=== PATIENT | female | born 2000 | race Two or more races ===

== ENCOUNTER → 2022-06-20 | Emergency (ER) | payer MEDICAID, OTHER | END | disposition left against medical advice (07) | LOC: ER 19:49 | DX: O26.893 Other specified pregnancy related conditions, third trimester (principal); R50.9 Fever, unspecified; Z3A.34 34 weeks gestation of pregnancy; Z53.21 Procedure and treatment not carried out due to patient leaving prior to being seen by health care provider ==

== ENCOUNTER → 2024-03-25 | Outpatient (CLI) | payer MEDICAID ==
[2024-03-26 07:06] LABS: RPR Non Reactive (Non Reactive)
== END | disposition home or self-care (01) ==
LOC: LAB 12:07
PROVIDERS: ATTEND Obstetrics & Gynecology
DX: Z34.80 Encounter for supervision of other normal pregnancy, unspecified trimester (principal)
CPT/HCPCS: 86592

== ENCOUNTER → 2024-03-31 | Outpatient (CLI) | payer MEDICAID ==
[2024-03-31 15:00] LABS: Basophils # (auto) 0 10 ^3/uL (0-0.2); Basophils % (auto) 0.7 % (0.0-2.0); Eosinophils # (auto) 0.1 10 ^3/uL (0-0.8); Eosinophils % (auto) 0.8 % (0.0-7.0); Hematocrit 30.5 % (36.0-46.0); Hemoglobin 10.2 g/dL (12.2-16.2); Lymphocytes # (auto) 1.3 10 ^3/uL (0.4-5.4); Lymphocytes % (auto) 19.1 % (10.0-50.0); Mean Corpuscular Hemoglobin 27.7 pg (28.0-32.0); Mean Corpuscular Hgb Conc. 33.6 g/dL (32.0-36.0); Mean Corpuscular Volume 82.4 fL (80.0-100.0); Monocytes # (auto) 0.5 10 ^3/uL (0-1.3); Monocytes % (auto) 7.6 % (0.0-12.0); Neutrophils # (auto) 4.8 10 ^3/uL (1.6-8.6); Neutrophils % (auto) 71.8 % (37.0-80.0); Platelet Count (auto) 194 10^3/uL (140-450); Red Cell Distribution Width 14.7 % (11.8-14.3); White Blood Cell 6.7 10^3/uL (4.4-10.8)
[2024-04-01 07:06] LABS: RPR Non Reactive (Non Reactive)
[2024-04-01 22:06] LABS: Chlamydia Trachomatis, NAA Negative (Negative); Neisseria gonorrhoeae, NAA Negative (Negative)
[2024-04-02 12:07] LABS: QuantiFERON-TB Gold Plus Negative (Negative)
== END | disposition home or self-care (01) ==
LOC: LAB 14:15
PROVIDERS: ATTEND Obstetrics & Gynecology
DX: Z11.3 Encounter for screening for infections with a predominantly sexual mode of transmission (principal); Z72.51 High risk heterosexual behavior
CPT/HCPCS: 36415; 85025; 86592

== ENCOUNTER 2024-04-09 11:09 | Observation (INO) | payer MEDICAID ==
[2024-04-09] MEDS ORDERED: PREN-96 PO (11:23)
[2024-04-09 13:31] LABS: Amphetamine Screen, Urine Neg (NEGATIVE); Barbiturate Scree,Urine Neg (NEGATIVE); Benzodiazephine Screen, Urine Neg (NEGATIVE); Cannabinoid Screen, Urine Neg (NEGATIVE); Cocaine Screen, Urine Neg (NEGATIVE); Opiate Scree,Urine Neg (NEGATIVE); Phencyclidine Screen, Urine Neg (NEGATIVE)
== END 2024-04-09 14:08 | disposition home or self-care (01) ==
LOC: UNDOADMOB 11:09 → LDRP 11:09
PROVIDERS: ADMIT Obstetrics & Gynecology; ATTEND Obstetrics & Gynecology
DX: O69.81X0 Labor and delivery complicated by cord around neck, without compression, not applicable or unspecified (principal); O26.893 Other specified pregnancy related conditions, third trimester; H53.8 Other visual disturbances; F41.0 Panic disorder [episodic paroxysmal anxiety]; Z3A.36 36 weeks gestation of pregnancy; Z79.899 Other long term (current) drug therapy
CPT/HCPCS: 59025; 76818; 80307; 81002; 82948; 82962; 94760; 96360; 96361; G0378

== ENCOUNTER 2024-04-13 11:19 | Observation (INO) | payer MEDICAID ==
[~2024-04-13 11:19] MED LIST: PREN-96 PO
== END 2024-04-13 15:26 | disposition home or self-care (01) ==
LOC: LDRP 13:56
PROVIDERS: ADMIT Obstetrics & Gynecology; ATTEND Obstetrics & Gynecology
DX: O69.81X0 Labor and delivery complicated by cord around neck, without compression, not applicable or unspecified (principal); O34.63 Maternal care for abnormality of vagina, third trimester; N89.8 Other specified noninflammatory disorders of vagina; Z3A.37 37 weeks gestation of pregnancy
CPT/HCPCS: 59025; 76818; 81002; G0378

== ENCOUNTER 2024-04-16 08:55 | Observation (INO) | payer MEDICAID | END 2024-04-16 10:50 | disposition home or self-care (01) | LOC: UNDOADMOB 08:55 → LDRP 08:55 | PROVIDERS: ADMIT Obstetrics & Gynecology; ATTEND Obstetrics & Gynecology | DX: O99.891 Other specified diseases and conditions complicating pregnancy (principal); M54.9 Dorsalgia, unspecified; O69.81X0 Labor and delivery complicated by cord around neck, without compression, not applicable or unspecified; Z3A.37 37 weeks gestation of pregnancy | CPT/HCPCS: 59025; 76818; 81002; G0378 ==

== ENCOUNTER 2024-04-17 21:00 | Observation (INO) | payer MEDICAID ==
[~2024-04-17] VITALS: Ht 149.9 cm; Wt 81.2 kg
== END 2024-04-17 23:30 | disposition home or self-care (01) ==
LOC: LDRP 21:00
PROVIDERS: ADMIT Obstetrics & Gynecology; ATTEND Obstetrics & Gynecology
DX: O36.8130 Decreased fetal movements, third trimester, not applicable or unspecified (principal); O62.9 Abnormality of forces of labor, unspecified; Z3A.38 38 weeks gestation of pregnancy
CPT/HCPCS: 59025; 76818; 81002; 94760; G0378

== ENCOUNTER 2024-04-18 18:57 | Observation (INO) | payer MEDICAID | END 2024-04-18 21:27 | disposition home or self-care (01) | LOC: LDRP 18:57 | PROVIDERS: ADMIT Obstetrics & Gynecology; ATTEND Obstetrics & Gynecology | DX: O62.9 Abnormality of forces of labor, unspecified (principal); O69.81X0 Labor and delivery complicated by cord around neck, without compression, not applicable or unspecified; Z3A.38 38 weeks gestation of pregnancy | CPT/HCPCS: 59025; 76818; 81002; G0378 ==

== ENCOUNTER 2024-04-20 04:49 | Inpatient (IN) | payer MEDICAID ==
[~2024-04-20] VITALS: Ht 147.3 cm; Wt 81.6 kg
[2024-04-21] MEDS ORDERED: LIDOCAINE 2%HCL (LOCAL ANESTH.) INJ 20ML MDV IJ PRN (17:15)
[2024-04-21] MEDS ORDERED: LACTATED RINGER'S 1,000 ML IV SCH (17:15)
[2024-04-21] MEDS ORDERED: NITROGLYCERIN 0.4 MG SL TAB SL PRN (17:15)
[2024-04-21] MEDS ORDERED: MORPHINE SULFATE INJ 2 MG/ml SYRG IV PRN (17:15)
[2024-04-21] MEDS ORDERED: ePHEDrine SULFATE 50 MG/ML AMP IV ONE (18:45)
[2024-04-21] MEDS ORDERED: LIDOCAINE HCL 2 %PF INJ 10ML AMP IJ ONE (18:45)
[2024-04-21] MEDS ORDERED: NALOXONE HCL 0.4 MG/ML VIAL IV ONE (18:45)
[2024-04-21] MEDS ORDERED: miSOPROStol 100 mcg TAB SL PRN (19:00)
[2024-04-21] MEDS ORDERED: ONDANSETRON HCL 4 MG/2 ML VIAL IV PRN (19:00)
[2024-04-21] MEDS ORDERED: TERBUTALINE SULFATE 1 MG/ML 1ML VIAL SC PRN (19:00)
[2024-04-21] MEDS ORDERED: CARBOPROST TROMETHAMINE 250 MCG/1ML VIAL IM PRN (19:00)
[2024-04-21] MEDS ORDERED: miSOPROStol 100 mcg TAB PR PRN (19:00)
[2024-04-21] MEDS ORDERED: METHYLERGONOVINE MALEATE 0.2 MG/ML AMP IM PRN (19:00)
[2024-04-21] MEDS: PHISODERM TOP SOLN 240ML BTL TOP PRN (19:12)
[2024-04-21] MEDS: DERMOPLAST 60ML BOTTLE TOP PRN (19:12)
[2024-04-21] MEDS: WITCH HAZEL-GLYCERIN PAD TOP PRN (19:12)
[2024-04-21 19:13] LABS: Basophils # (auto) 0 10 ^3/uL (0-0.2); Basophils % (auto) 0.2 % (0.0-2.0); Eosinophils # (auto) 0 10 ^3/uL (0-0.8); Eosinophils % (auto) 0.4 % (0.0-7.0); Hematocrit 30.8 % (36.0-46.0); Hemoglobin 10.6 g/dL (12.2-16.2); Lymphocytes # (auto) 1.3 10 ^3/uL (0.4-5.4); Lymphocytes % (auto) 12.2 % (10.0-50.0); Mean Corpuscular Hemoglobin 27.8 pg (28.0-32.0); Mean Corpuscular Hgb Conc. 34.3 g/dL (32.0-36.0); Mean Corpuscular Volume 80.8 fL (80.0-100.0); Monocytes # (auto) 0.7 10 ^3/uL (0-1.3); Monocytes % (auto) 6.3 % (0.0-12.0); Neutrophils # (auto) 8.7 10 ^3/uL (1.6-8.6); Neutrophils % (auto) 80.9 % (37.0-80.0); Platelet Count (auto) 197 10^3/uL (140-450); Red Blood Cells 3.81 10^6/uL (4.0-5.20); Red Cell Distribution Width 15.2 % (11.8-14.3); White Blood Cell 10.7 10^3/uL (4.4-10.8)
[2024-04-21] MEDS: LACTATED RINGER'S 1,000 ML IV ONE (19:13)
[2024-04-21 19:28] LABS: Albumin 4.2 g/dL (3.2-4.8); Alkaline Phosphatase 169 U/L (46-116); Anion Gap 9 (5-15); Aspartate Aminotransferase 11 U/L (13-40); BUN/Creatinine Ratio 13.5 (10.0-20.0); Blood Urea Nitrogen 7 mg/dL (9-23); Calcium 9.3 mg/dL (8.7-10.4); Carbon Dioxide 19 mmol/L (20-30); Chloride 106 mmol/L (98-107); Glucose 75 mg/dL (74-106); Potassium 3.5 mmol/L (3.5-5.1); Sodium 134 mmol/L (136-145)
[2024-04-21 19:29] LABS: Bilirubin, Total 0.3 mg/dL (0.2-1.0); Total Protein 7.5 g/dL (5.7-8.2)
[2024-04-21 19:34] LABS: Alanine Aminotransferase < 9 U/L (7-40)
[2024-04-21 19:40] LABS: INR 0.94 (0.9-1.15); Partial Thromboplastin Time 25.5 SEC (24.5-34.5)
[2024-04-21 20:00] LABS: Urine Bacteria None Seen /hpf (None Seen)
[2024-04-21 20:20] LABS: Urine Blood Negative /uL (Negative); Urine Clarity Clear (Clear); Urine Color Yellow (Yellow); Urine Mucus FEW (None Seen); Urine Protein, UAD TRACE (Negative); Urine Specific Gravity 1.024 (1.001-1.035); Urine Urobilinogen Normal (Negative); Urine WBC 1 /hpf (0 - 5); Urine pH 7.5 (5.0-9.0)
[2024-04-21 20:27] LABS: Amphetamine Screen, Urine Neg (NEGATIVE); Barbiturate Scree,Urine Neg (NEGATIVE); Benzodiazephine Screen, Urine Neg (NEGATIVE); Cocaine Screen, Urine Neg (NEGATIVE)
[2024-04-21 20:28] LABS: Cannabinoid Screen, Urine Neg (NEGATIVE); Opiate Scree,Urine Neg (NEGATIVE); Phencyclidine Screen, Urine Neg (NEGATIVE)
[2024-04-21] MEDS: LACT. RINGERS/OXYTOCIN 20UNITS 500 ML IV ONE ×2 (20:48→21:05)
[2024-04-21] MEDS: ROPIVACAINE HCL 200 ML ONE (20:51)
[2024-04-21] MEDS: fentaNYL CITRATE 100 MCG/2 ML VL IV ONE (20:52)
[2024-04-21] MEDS ORDERED: DIPHENOXYLATE W/ATROPINE 2.5 MG TAB PO SCH (22:00)
[2024-04-21 22:45] VITALS: BP 119/80; PULSE 75; RESP 16; TEMP 98.4; O2SAT 97
[2024-04-22] MEDS: IBUPROFEN 600 MG TAB PO PRN (02:11)
[2024-04-22 03:00] VITALS: BP 122/77; PULSE 78; RESP 16; TEMP 98.5; O2SAT 97
[2024-04-22] MEDS: DOCUSATE SOD 100 MG CAP PO SCH (04:18)
[2024-04-22] MEDS: ACETAMINOPHEN 325 MG TAB PO PRN (04:18)
[2024-04-22 07:00] VITALS: BP 112/70; PULSE 91; RESP 16; TEMP 98.3; O2SAT 98
[2024-04-22 09:01] LABS: Basophils # (auto) 0 10 ^3/uL (0-0.2); Basophils % (auto) 0.3 % (0.0-2.0); Eosinophils # (auto) 0 10 ^3/uL (0-0.8); Eosinophils % (auto) 0.4 % (0.0-7.0); Hematocrit 29.3 % (36.0-46.0); Hemoglobin 9.9 g/dL (12.2-16.2); Lymphocytes # (auto) 1.5 10 ^3/uL (0.4-5.4); Lymphocytes % (auto) 13.2 % (10.0-50.0); Mean Corpuscular Hemoglobin 27.4 pg (28.0-32.0); Mean Corpuscular Hgb Conc. 33.8 g/dL (32.0-36.0); Mean Corpuscular Volume 80.9 fL (80.0-100.0); Monocytes # (auto) 0.8 10 ^3/uL (0-1.3); Monocytes % (auto) 6.9 % (0.0-12.0); Neutrophils # (auto) 8.8 10 ^3/uL (1.6-8.6); Neutrophils % (auto) 79.2 % (37.0-80.0); Platelet Count (auto) 194 10^3/uL (140-450); Red Blood Cells 3.62 10^6/uL (4.0-5.20); Red Cell Distribution Width 15.1 % (11.8-14.3); White Blood Cell 11.2 10^3/uL (4.4-10.8)
[2024-04-22] MEDS: PRENATAL VITAMIN TAB PO SCH (10:03)
[2024-04-22 10:43] VITALS: BP 105/69; PULSE 89; RESP 16; TEMP 98.4
[2024-04-22 15:00] VITALS: BP 115/78; PULSE 79; RESP 16; TEMP 98.5
[2024-04-22 19:05] VITALS: BP 114/81; PULSE 74; RESP 18; TEMP 97.7; O2SAT 100
[2024-04-22] MEDS ORDERED: ASCO1TAB27 PO (21:47)
[2024-04-22] MEDS ORDERED: DOCU-265 PO (21:47)
[2024-04-22] MEDS ORDERED: PREN-96 PO (21:47)
[2024-04-22] MEDS ORDERED: IBU600T PO (21:47)
[2024-04-22] MEDS ORDERED: FER325T PO (21:47)
[2024-04-22] MEDS ORDERED: DOCUSATE SOD 100 MG CAP PO SCH (22:00)
[2024-04-22] MEDS: TETANUS-DIPTH-ACEL PERTUSSIS 0.5ML SYR Tdap IM ONE (22:10)
[2024-04-23 06:06] LABS: RPR Non Reactive (Non Reactive)
[2024-04-23 13:06] LABS: Rubella Antibodies, IgG 9.11 index (Immune >0.99)
== END 2024-04-22 23:06 | disposition home or self-care (01) | DRG 560 ==
LOC: LDRP 04-21 15:40 → OBSVTOIN 04-21 17:16
PROVIDERS: ADMIT Nurse Practitioner Women's Health; ATTEND Nurse Practitioner Women's Health
PROC: 10E0XZZ Delivery of Products of Conception, External Approach (ICD-10-PCS; principal; 2024-04-21)
PROC: 0KQM0ZZ Repair Perineum Muscle, Open Approach (ICD-10-PCS; 2024-04-21)
PROC: 3E0R3BZ Introduction of Anesthetic Agent into Spinal Canal, Percutaneous Approach (ICD-10-PCS; 2024-04-21)
PROC: 00HU33Z Insertion of Infusion Device into Spinal Canal, Percutaneous Approach (ICD-10-PCS; 2024-04-21)
DX: O77.0 Labor and delivery complicated by meconium in amniotic fluid (principal); Z37.0 Single live birth; J45.909 Unspecified asthma, uncomplicated; O69.81X0 Labor and delivery complicated by cord around neck, without compression, not applicable or unspecified; O70.1 Second degree perineal laceration during delivery; Z3A.38 38 weeks gestation of pregnancy; O99.52 Diseases of the respiratory system complicating childbirth
CPT/HCPCS: 36415; 59025; 59409; 62282; 80053; 80307; 81001; 85025; 85610; 85730; 86592; 86703; 86762; 86803; 86850; 86900; 86901; 87340; 90715; 94760; 96360; 96361; 96365; 96366; 96372; G0378; J2590

== ENCOUNTER 2024-04-20 14:45 | Observation (INO) | payer MEDICAID | END 2024-04-20 16:32 | disposition home or self-care (01) | LOC: LDRP 14:45 | PROVIDERS: ADMIT Obstetrics & Gynecology; ATTEND Obstetrics & Gynecology | DX: O69.81X0 Labor and delivery complicated by cord around neck, without compression, not applicable or unspecified (principal); Z3A.38 38 weeks gestation of pregnancy | CPT/HCPCS: 59025; 76818; 81002; 94760; G0378 ==

== ENCOUNTER 2025-03-22 14:21 | Outpatient (CLI) | payer MEDICAID ==
[~2025-03-22 14:21] MED LIST changes: +ASCO1TAB27 PO; +DOCU-265 PO; +FER325T PO; +IBU600T PO
[2025-03-22 14:54] LABS: Hematocrit 42.0 % (36.0-46.0); Hemoglobin 15.0 g/dL (12.2-16.2); Mean Corpuscular Hemoglobin 31.1 pg (28.0-32.0); Mean Corpuscular Volume 87.0 fL (80.0-100.0); Nucleated Red Blood Cells % 0.4 %
[2025-03-22 15:19] LABS: Alanine Aminotransferase 27 U/L (7-40); Alkaline Phosphatase 108 U/L (46-116); Anion Gap 9 (5-15); BUN/Creatinine Ratio 15.2 (10.0-20.0); Bilirubin, Total 0.6 mg/dL (0.2-1.0); Blood Urea Nitrogen 10 mg/dL (9-23); Calcium 10.0 mg/dL (8.7-10.4); Carbon Dioxide 24 mmol/L (20-31); Glucose 101 mg/dL (74-106); Potassium 4.0 mmol/L (3.5-5.1); Sodium 141 mmol/L (136-145); Total Protein 8.0 g/dL (5.7-8.2)
[2025-03-22 15:21] LABS: Free T3 3.3 pg/mL (2.3-4.2)
[2025-03-22 15:22] LABS: Albumin 5.2 g/dL (3.2-4.8); Beta HCG, Quantitative 0.5 mIU/mL (1.5-4.2); Chloride 108 mmol/L (98-107); Follicle Stimulating Hormone 7.03 IU/L (SEE BELOW)
[2025-03-22 16:16] LABS: Thyroid Stimulating Hormone 1.29 uIU/mL (0.55-4.78)
== END 2025-03-22 17:00 | disposition home or self-care (01) ==
LOC: LAB 14:21
PROVIDERS: ATTEND Obstetrics & Gynecology
DX: N93.9 Abnormal uterine and vaginal bleeding, unspecified (principal)
CPT/HCPCS: 36415; 80053; 82626; 83001; 83002; 83036; 83525; 84144; 84270; 84403; 84443; 84481; 84702; 85025; 87340